=== PATIENT | female | born 1960 | race Two or more races ===

== ENCOUNTER 2016-11-21 04:43 | Emergency (ER) | payer OTHER ==
[~2016-11-21] VITALS: Ht 154.9 cm; Wt 80.3 kg
[2016-11-21 05:12] VITALS: BP 129/78
[2016-11-21] MEDS ORDERED: Lidocaine 2% Visc 15ml soln ORAL ONE (05:15)
[2016-11-21] MEDS ORDERED: Dicyclomine HCl 10mg/5ml oral soln ORAL ONE (05:15)
[2016-11-21 05:17] VITALS: BP 120/69
[2016-11-21 05:25] VITALS: BP 117/79
[2016-11-21 05:30] VITALS: BP 123/84
[2016-11-21] MEDS ORDERED: ZOFRAN4 M3 ORAL (05:33)
[2016-11-21] MEDS ORDERED: BENTYL10 MG ORAL (05:33)
[2016-11-21] MEDS ORDERED: IMODIUM2 MG ORAL (05:33)
[2016-11-21 05:53] VITALS: BP 123/84
--- NOTE | 2016-11-21 06:05 | Emergency Room Report ---
History of Present Illness General Chief Complaint: Diarrhea Source: Patient Present Illness [facility] This is a 56-year-old female presented after increased nausea as well as diarrhea. This reports having multiple episodes of watery diarrhea over the past few hours. The patient denies dizziness or lightheadedness. She had not been vomiting. She reports having his nausea. She denied fever. She denied any severe abdominal pain. She denied any dysuria low back pain. Pain did not radiate. As crampy in nature. Allergies: Coded Allergies: No Known Allergies (Unverified , 11/21/16) Patient History Past Medical History: see triage record Reviewed Nursing Documentation: PMH: Agreed, PSxH: Agreed Nursing Documentation-PMH Past Medical History: No Stated History Review of Systems All Other Systems: negative except mentioned in HPI Physical Exam Vital Signs Date Time Temp Pulse Resp B/P Pulse Ox O2 Delivery O2 Flow Rate FiO2 11/21/16 04:51 97.9 77 16 129/78 97 Room Air General Appearance: well appearing, no apparent distress, alert, GCS 15 Head: normocephalic, atraumatic ENT: hearing grossly normal, normal voice Neck: full range of motion, supple Respiratory: no respiratory distress, speaking full sentences Cardiovascular #1: normal inspection, normal peripheral pulses, regular rate, rhythm Gastrointestinal: normal inspection, normal bowel sounds, non tender, soft, no mass Musculoskeletal: normal inspection, back normal, no calf tenderness Neurologic: normal inspection, alert, oriented x3, normal gait Psychiatric: mood/affect normal Skin: no rash Medical Decision Making Diagnostic Impression: Primary Impression: Gastroenteritis ER Course Patient presented for abdominal pain. Differential diagnoses included ischemic bowel, appendicitis, perforated viscus, abdominal aortic aneurysm, inferior myocardial infarction, viral gastroenteritis Patient's benign exam and does not appear to require any further imaging or laboratory testing at this time. Orthostatic vital signs were noted be normal. The patient was given GI cocktail with improvement in her pain. Patient appears to have viral gastroenteritis. She does not appear to require any laboratory testing at this time. The patient given prescription for oral Bentyl as well as Imodium. Last Vital Signs Date Time Temp Pulse Resp B/P Pulse Ox O2 Delivery O2 Flow Rate FiO2 11/21/16 05:53 97.9 67 16 123/84 97 Room Air Status: improved Disposition: HOME, SELF-CARE Condition: Stable Scripts Ondansetron* (ZOFRAN*) 4 Mg Tablet 4 MG ORAL Q6H Y for Nausea & Vomiting, #30 TAB Prov: Markus Cavazos 11/21/16 Loperamide HCl (Loperamide) 2 Mg Capsule 2 MG ORAL Q4H for Diarrhea, #20 CAP 0 Refills Prov: Markus Cavazos 11/21/16 Dicyclomine Hcl* (BENTYL*) 10 Mg Capsule 10 MG ORAL FOUR TIMES A DAY, #30 CAP Prov: Markus Cavazos 11/21/16 Patient Instructions: Viral Gastroenteritis, Adult Markus Cavazos Nov 21, 2016 06:05
== END 2016-11-21 05:52 | disposition home or self-care (01) ==
LOC: EMR 05:30
DX: K52.9 Noninfective gastroenteritis and colitis, unspecified (principal); R11.0 Nausea
CPT/HCPCS: 99284